=== PATIENT | female | born 1995 | race Caucasian/White ===

== ENCOUNTER 2016-12-29 12:39 | Emergency (ER) | payer OTHER ==
[~2016-12-29] VITALS: Ht 172.7 cm; Wt 77.3 kg
[~2016-12-29 12:39] MED LIST: ALBU8.5H8 INH
[2016-12-29 13:52] LABS: PATH.CAST-FLAG NOT PRESENT; SPERM-FLAG NOT PRESENT; SRC-FLAG NOT PRESENT; XTAL-FLAG NOT PRESENT; YLC-FLAG NOT PRESENT
[2016-12-29 15:03] VITALS: BP 120/67
[2016-12-29] MEDS ORDERED: CEFTRIAXONE 1,000 MG ONE (15:16)
[2016-12-29] MEDS ORDERED: CEFTRIAXONE 1,000 MG IM ONE (15:30)
== END 2016-12-29 15:53 | disposition home or self-care (01) ==
LOC: ED 15:18
DX: N30.90 Cystitis, unspecified without hematuria (principal); J45.909 Unspecified asthma, uncomplicated
CPT/HCPCS: 81001; 87086; 96372; 99284; J0696

== ENCOUNTER 2017-01-04 20:12 | Emergency (ER) | payer OTHER ==
[~2017-01-04] VITALS: Ht 172.7 cm; Wt 76.2 kg
[2017-01-04 20:20] VITALS: BP 134/81
[2017-01-04] MEDS ORDERED: ALBUTEROL/IPRATROPIUM 2.5MG/0.5MG, 3 ML NPPB ONE (21:00)
== END 2017-01-04 21:29 | disposition home or self-care (01) ==
LOC: ED 21:28
DX: J45.21 Mild intermittent asthma with (acute) exacerbation (principal); J45.909 Unspecified asthma, uncomplicated
CPT/HCPCS: 71020; 94640; 99284; J7512; J7620

== ENCOUNTER 2018-11-06 21:25 | Emergency (ER) | payer OTHER, MEDICAID ==
[~2018-11-06] VITALS: Ht 167.6 cm; Wt 90.6 kg
[2018-11-06 22:22] VITALS: BP 128/72
== END 2018-11-07 00:04 | disposition home or self-care (01) ==
LOC: ED 23:59
DX: O03.4 Incomplete spontaneous abortion without complication (principal); J45.909 Unspecified asthma, uncomplicated; F17.200 Nicotine dependence, unspecified, uncomplicated
CPT/HCPCS: 36415; 76801; 80048; 82040; 84702; 85025; 99284